=== PATIENT | female | born 1965 ===

== ENCOUNTER → 2018-08-13 | Outpatient (CLI) | payer BC ==
[~2018-08-13] MED LIST: ASCO500 PO; CALCA500CH PO; EC MATRIXX TAB1 EACH PO; ERGO400 PO; ESTRADIOL1 MG PO; Flagyl500 MG PO; IBUP800 PO; INSLIS75I; LEVFLO500 PO; LEVO750 PO; Lugol's Strong I1 ML TP; METR500 PO; MULT50L PO; OXYC5; OXYC5 PO; PROG100 PO; Percocet 5-3251 EACH PO; SULTRIDS PO; THYR60 PO; Zofran Odt8 MG SL
[2018-08-17 13:11] LABS: HPV 16 Negative (Negative); HPV 18 Negative (Negative); HPV OTHER HR TYPES Negative (Negative)
== END | disposition home or self-care (01) ==
LOC: LAB SHORT 09:48 → LAB 09:48
PROVIDERS: Obstetrics & Gynecology Gynecology
DX: Z12.4 Encounter for screening for malignant neoplasm of cervix (principal)
CPT/HCPCS: 87624; G0123

== ENCOUNTER → 2020-08-24 | Outpatient (CLI) | payer BC ==
[2020-08-28 15:07] LABS: HPV 16 Negative (Negative); HPV 18 Negative (Negative); HPV OTHER HR TYPES Negative (Negative)
== END | disposition home or self-care (01) ==
LOC: LAB SHORT 14:42 → LAB 14:42
PROVIDERS: Obstetrics & Gynecology
DX: Z01.419 Encounter for gynecological examination (general) (routine) without abnormal findings (principal)
CPT/HCPCS: 87624; G0123

== ENCOUNTER 2021-05-21 22:01 | Emergency (ER) | payer BC ==
[~2021-05-21] VITALS: Ht 154.9 cm; Wt 72.6 kg
[2021-05-22] MEDS ORDERED: AMOCLA875 PO (00:38)
== END 2021-05-22 01:05 | disposition home or self-care (01) ==
LOC: ER 22:01
DX: S01.85XA Open bite of other part of head, initial encounter (principal); S01.151A Open bite of right eyelid and periocular area, initial encounter; E03.9 Hypothyroidism, unspecified; Z79.899 Other long term (current) drug therapy; Z23 Encounter for immunization; Z87.891 Personal history of nicotine dependence; W54.0XXA Bitten by dog, initial encounter
CPT/HCPCS: 12011; 90471; 90714; 99282-25; A9270

== ENCOUNTER → 2022-09-17 | Outpatient (CLI) | payer BC ==
[~2022-09-17] MED LIST changes: +AMOCLA875 PO
[2022-09-17 12:29] LABS: BASOPHILS ABSOLUTE AUTO 0.04 K/mm3 (0.00-0.23); BASOPHILS PERCENT AUTO 1 % (0-2); EOSINOPHILS ABSOLUTE AUTO 0.16 K/mm3 (0.00-0.68); EOSINOPHILS PERCENT AUTO 2 % (0-6); Hematocrit 42.1 % (33.0-51.0); Hemoglobin 14.2 g/dL (11.5-16.0); IMMATURE GRAN ABSOLUTE AUTO 0.02 K/mm3 (0.00-0.10); IMMATURE GRAN PERCENT AUTO 0 % (0-1); LYMPHOCYTES ABSOLUTE AUTO 2.59 K/mm3 (0.84-5.20); LYMPHOCYTES PERCENT AUTO 30 % (21-46); MONOCYTES ABSOLUTE AUTO 0.71 K/mm3 (0.16-1.47); MONOCYTES PERCENT AUTO 8 % (4-13); Mean Corpuscular HGB 30.5 pg (26.0-34.0); Mean Corpuscular HGB Conc 33.7 g/dL (31.5-36.5); Mean Corpuscular Volume 90 fL (80-100); Mean Platelet Volume 8.9 fL (9.1-12.4); NEUTROPHILS ABSOLUTE AUTO 4.99 K/mm3 (1.96-9.15); NEUTROPHILS PERCENT AUTO 59 % (41-73); Platelet Count 242 K/mm3 (150-400); RDW Coefficient Variation 12.1 % (11.7-14.2); RDW Standard Deviation 39.8 fL (35.1-46.3); Red Blood Cell Count 4.66 M/mm3 (3.80-5.20); White Blood Cell Count 8.51 K/mm3 (4.00-11.30)
[2022-09-17 13:33] LABS: Bun/Creatinine Ratio 24.8 (12.0-20.0); Calcium, Blood 9.2 mg/dL (8.5-10.1); Creatinine, Blood 0.65 mg/dL (0.40-1.00); Potassium, Blood 4.2 mmol/L (3.5-5.5)
== END | disposition home or self-care (01) ==
LOC: LAB 12:17 → LAB SHORT 12:17
PROVIDERS: Podiatrist Foot & Ankle Surgery
DX: Z01.812 Encounter for preprocedural laboratory examination (principal); M20.40 Other hammer toe(s) (acquired), unspecified foot; M77.40 Metatarsalgia, unspecified foot; M79.673 Pain in unspecified foot
CPT/HCPCS: 80048; 85025

== ENCOUNTER 2022-09-22 13:06 | Day surgery (SDC) | payer BC ==
[~2022-09-22] VITALS: Ht 154.9 cm; Wt 76.2 kg
[2022-09-22] MEDS ORDERED: CRINONE1.125 GM VG (13:32)
[2022-09-22] MEDS ORDERED: TRIEST (13:33)
[2022-09-22] MEDS ORDERED: OMEP20ER PO (13:46)
[2022-09-22] MEDS ORDERED: FAMO20 (13:46)
--- NOTE | 2022-09-22 14:58 | NUR ---
09/22/22 1458 Hector Granda ROPIVACAINE 0.5% 30 MLS MIXED W/ EPI 0.15ML (1MG/ML) PER ORDER TO MAKE ROPIVACAINE 0.5% 1:200,000 FOR INJECTION AT OPSITE BY DR THOMPSON.
--- NOTE | 2022-09-22 16:27 | NUR ---
09/22/22 1627 Narcisa Glez 1622 1 TAB ORAL PAIN MEDICINE GIVEN PER ORDERS, BP 117/71 MD 78, SPo2 98%, GIVEN FOR 5/10 PAIN
== END 2022-09-22 16:57 | disposition home or self-care (01) ==
LOC: ORSCSDS 13:06
PROVIDERS: Podiatrist Foot & Ankle Surgery
PROC: 0QBP0ZZ Excision of Left Metatarsal, Open Approach (ICD-10-PCS; principal; 2022-09-22 14:30)
PROC: 0SGP04Z Fusion of Right Toe Phalangeal Joint with Internal Fixation Device, Open Approach (ICD-10-PCS; principal; 2022-09-22 14:30)
DX: M20.41 Other hammer toe(s) (acquired), right foot (principal); M77.41 Metatarsalgia, right foot; M79.671 Pain in right foot; E03.9 Hypothyroidism, unspecified; Z79.899 Other long term (current) drug therapy
CPT/HCPCS: A9270; C1713; J0171; J0690; J1100; J2250; J2405; J2704; J2795; J3010

== ENCOUNTER 2024-06-30 10:13 | Day surgery (SDC) | payer BC ==
[~2024-06-30] VITALS: Ht 154.9 cm; Wt 70.3 kg
[~2024-06-30 10:13] MED LIST changes: +CRINONE1.125 GM VG; +FAMO20; +Lactated Ringer's 1,000 ML IV ONE; +OMEP20ER PO; +Ropivacaine 0.5% HCL/PF 5 MG/ML 30ML Vial ONE; +TRIEST
[2024-06-30] MEDS ORDERED: NS 50 ML IV ONE (10:32)
[2024-06-30] MEDS ORDERED: CeFAZolin Sodium 2,000 MG VIAL ONE (10:32)
[2024-06-30] MEDS ORDERED: Lactated Ringer's 1,000 ML IV ONE ×2 (11:05→13:00)
[2024-06-30] MEDS ORDERED: propofoL 20 ML IV ONE (11:34)
[2024-06-30] MEDS ORDERED: FentaNYL Citrate 50 MCG/ML 2 ML Injection ONE ×2 (11:42→13:54)
[2024-06-30] MEDS ORDERED: Ondansetron HCl 2 MG / ML 2ML Vial ONE (11:44)
[2024-06-30] MEDS ORDERED: Dexamethasone Sod Phos 10 MG/ML 1ML VIAL ONE (11:44)
[2024-06-30] MEDS ORDERED: ePHEDrine Sulfate 50 MG/ML 1ML Injection ONE (12:17)
--- NOTE | 2024-06-30 12:58 | NUR ---
06/30/24 1258 Hector Granda HEAD MASS AREA PREPPED WITH BETADINE PREP. PT MOVED TO SUPINE POSTION FOR HEAD MASS EXCISION. PILLOW UNDER KNEES.
[2024-06-30 13:31] VITALS: BP 153/91
[2024-06-30] MEDS ORDERED: HYDROcodone 5-APAP 325 TAB ONE (13:54)
--- NOTE | 2024-06-30 14:28 | NUR ---
06/30/24 1428 Lillian Alvarado PT ABLE TO VOID AFTER PROCEDURE. 25MCG OF IV FENTANYL GIVEN FOR PAIN TO L BUTTOCKS, PT'S PAIN RATING WAS A 6/10. IV FENTANYL WAS EFFECTIVE, PT'S PAIN DOWN TO A 2/10. PAIN PILL NORCO 5/325MG GIVEN AFTER PT WAS ABLE TO EAT A SNACK. PT DOING WELL. PT PLEASANT AND COOPERATIVE WITH CARE PROVIDED.
== END 2024-06-30 14:24 | disposition home or self-care (01) ==
LOC: ORSCSDS 10:13
PROVIDERS: Surgery
PROC: 0JB70ZX Excision of Back Subcutaneous Tissue and Fascia, Open Approach, Diagnostic (ICD-10-PCS; principal; 2024-06-30 11:15)
PROC: 0JB90ZX Excision of Buttock Subcutaneous Tissue and Fascia, Open Approach, Diagnostic (ICD-10-PCS; principal; 2024-06-30 11:15)
PROC: 0JB00ZX Excision of Scalp Subcutaneous Tissue and Fascia, Open Approach, Diagnostic (ICD-10-PCS; principal; 2024-06-30 11:15)
DX: C49.5 Malignant neoplasm of connective and soft tissue of pelvis (principal); L72.0 Epidermal cyst; Z87.891 Personal history of nicotine dependence; K21.9 Gastro-esophageal reflux disease without esophagitis; E03.9 Hypothyroidism, unspecified; F41.9 Anxiety disorder, unspecified; Z79.899 Other long term (current) drug therapy
CPT/HCPCS: 88304; 88307; 88341; 88342; A9270; J0690; J1100; J2405; J2704; J2795; J3010; J7120

== ENCOUNTER → 2024-08-09 | Outpatient (CLI) | payer BC ==
[~2024-08-09] MED LIST changes: -Lactated Ringer's 1,000 ML IV ONE; -Ropivacaine 0.5% HCL/PF 5 MG/ML 30ML Vial ONE
[2024-08-17 12:26] LABS: HPV HIGH RISK BY TMA Not Detected; HPV SOURCE Cervical
== END ==
LOC: LAB SHORT 12:10 → LAB 12:10
PROVIDERS: Obstetrics & Gynecology
DX: Z01.419 Encounter for gynecological examination (general) (routine) without abnormal findings (principal)
CPT/HCPCS: 87624; G0123